=== PATIENT | male | born 1990 | race Caucasian/White ===

== ENCOUNTER 2025-07-20 16:54 | Emergency (ER) | payer SELFPAY ==
[2025-07-20 16:56] VITALS: BP 140/78; PULSE 77; RESP 18; TEMP 36.5; O2SAT 100
[2025-07-20] MEDS: DOXYCYCLINE HYCLATE 100 MG TABLET PO (17:11)
--- NOTE | 2025-07-20 17:19 | ED.SKABFB ---
HPI - Skin/Abscess/Foreign Bdy General Chief complaint: Skin/Abscess/Foreign Body Stated complaint: Spider bite left arm-swollen red Time Seen by Provider: 07/20/25 17:02 History of Present Illness HPI narrative: Patient had a likely brown recluse bite a few days ago, since then has become more swollen and red and uncomfortable. Related Data Allergies Allergy/AdvReac Type Severity Reaction Status Date / Time No Known Allergies Allergy Verified 07/20/25 17:10 Review of Systems Review of Systems: All systems reviewed & are unremarkable except as noted in HPI and below Exam Narrative: EXAMINATION OF ORGAN SYSTEMS/BODY AREAS: Constitutional: Vital signs per nursing GENERAL:[No acute distress, non-toxic appearing.] HEAD: Normal with no signs of head trauma. EYES: EOMI, conjunctiva normal ENT: Hearing grossly intact LUNGS: Nonlabored breathing. HEART: [Regular rate and rhythm] ABD: [Soft], [nontender to palpation] EXT: Normal range of motion SKIN: Small area of bruising to left upper arm with surrounding redness NEURO: [Alert and oriented x 3. No gross focal sensory or strength deficits.] PSYCH: Normal affect Course Vital Signs Vital signs: Vital Signs Temperature 97.7 F 07/20/25 16:56 Pulse Rate 77 07/20/25 16:56 Respiratory Rate 18 07/20/25 16:56 Blood Pressure 140/78 07/20/25 16:56 Pulse Oximetry 100 07/20/25 16:56 Oxygen Delivery Room Air 07/20/25 16:56 Temperature 97.7 F 07/20/25 16:56 Pulse Rate 77 07/20/25 16:56 Respiratory Rate 18 07/20/25 16:56 Blood Pressure 140/78 07/20/25 16:56 Pulse Oximetry 100 07/20/25 16:56 Oxygen Delivery Room Air 07/20/25 16:56 MDM - Skin/Abscess/Foreign Bdy MDM Narrative Medical decision making narrative: MEDICAL DECISION MAKING AND COURSE IN THE ED WITH INTERPRETATION/REVIEW OF DIAGNOSTIC STUDIES: Electronic medical record was reviewed. Patient presented to the ED with complaint of painful skin rash. Vitals [were within acceptable limits]. Physical exam revealed area of tenderness and induration that appears to be consistent with localized reaction to spider bite, possible cellulitis developing. He is well-appearing here in no distress. I will start him on antibiotics, start NSAIDs and antihistamines, with close follow-up to PCP and return precautions. Care instructions discussed. Patient agreeable to plan Discharge Plan Discharge Clinical Impression: Brown recluse spider bite Patient Disposition: Home Condition: Stable Instructions: Antibiotic Form, Brown Recluse Spider Bite (ED) Additional Instructions: Please follow up with your doctor; you can always return for any further issues. If you don't have a PCP you can follow up with the one listed below. Patient Language: Armenian Prescriptions: New doxycycline hyclate 100 mg capsule 100 mg PO Q12H 7 Days Qty: 14 0RF ibuprofen 600 mg tablet 600 mg PO TID PRN (Reason: fever or pain) Qty: 30 0RF loratadine 10 mg tablet 10 mg PO DAILY Qty: 30 0RF Follow-up/Referrals: Saran De La Torre MD [Physician, Family Practice] - 2 Days PHYSICIAN NOT ON STAFF,NONSTAFF [Primary Care Provider]
[2025-07-20 17:20] VITALS: BP 138/79; PULSE 85; RESP 17; O2SAT 99
--- OUTSIDE RECORDS SUMMARY | 2025-07-20 17:26 | XMS_ITS ---
Author Organization Unknown ENCOUNTERS Encounter Performer Location Date Diagnosis Diagnosis Status Emergency [facility] [id number] [place] [address] [id number] WAY[place] Pre Admit [facility] [id number] [place] [address] [id number] WAY[place] *Note: Encounters from your own facility or health system may be excluded. Allergies, Adverse Reactions, Alerts Allergen Type Severity Identification Date Medications Name Date Quantity Days Supplied GPI Number
== END 2025-07-20 17:30 | disposition home or self-care (01) ==
LOC: ANHED 17:24
PROVIDERS: Emergency Provider Emergency Medicine
DX: T63.331A Toxic effect of venom of brown recluse spider, accidental (unintentional), initial encounter (principal)
CPT/HCPCS: 99283; A9270